=== PATIENT | male | born 1940 | race Caucasian/White ===

== ENCOUNTER 2016-08-10 08:00 | Outpatient (CLI) | payer MEDICARE | END 2016-08-10 23:59 | DX: I48.91 Unspecified atrial fibrillation (principal); Z79.01 Long term (current) use of anticoagulants ==

== ENCOUNTER 2016-09-07 13:03 | Outpatient (CLI) | payer MEDICARE | END 2016-09-07 13:04 | disposition home or self-care (01) | DX: I48.91 Unspecified atrial fibrillation (principal); Z79.01 Long term (current) use of anticoagulants ==

== ENCOUNTER 2016-10-04 11:39 | Outpatient (CLI) | payer MEDICARE | END 2016-10-04 11:40 | disposition home or self-care (01) | DX: I48.91 Unspecified atrial fibrillation (principal); Z79.01 Long term (current) use of anticoagulants ==

== ENCOUNTER 2016-11-03 15:12 | Outpatient (CLI) | payer MEDICARE | END 2016-11-03 15:13 | disposition home or self-care (01) | DX: Z79.01 Long term (current) use of anticoagulants (principal); I48.91 Unspecified atrial fibrillation ==

== ENCOUNTER 2016-11-10 09:21 | Outpatient (CLI) | payer MEDICARE | END 2016-11-10 09:22 | disposition home or self-care (01) | DX: Z79.01 Long term (current) use of anticoagulants (principal); I48.91 Unspecified atrial fibrillation ==

== ENCOUNTER 2016-11-27 13:01 | Outpatient (CLI) | payer MEDICARE | END 2016-11-27 13:02 | disposition home or self-care (01) | DX: I48.91 Unspecified atrial fibrillation (principal); Z79.01 Long term (current) use of anticoagulants ==

== ENCOUNTER 2016-12-12 12:57 | Outpatient (CLI) | payer MEDICARE | END 2016-12-12 12:58 | disposition home or self-care (01) | LOC: LAB.F 12:57 | PROVIDERS: ATTEND Family Medicine | DX: I48.91 Unspecified atrial fibrillation (principal); Z79.01 Long term (current) use of anticoagulants | CPT/HCPCS: 85610 ==

== ENCOUNTER 2016-12-26 10:44 | Outpatient (CLI) | payer MEDICARE | END 2016-12-26 10:45 | disposition home or self-care (01) | LOC: LAB.F 10:44 | PROVIDERS: ATTEND Family Medicine | DX: I48.91 Unspecified atrial fibrillation (principal); Z79.01 Long term (current) use of anticoagulants | CPT/HCPCS: 85610 ==

== ENCOUNTER 2017-01-23 12:54 | Outpatient (CLI) | payer MEDICARE | END 2017-01-23 12:55 | disposition home or self-care (01) | LOC: LAB.F 12:54 | PROVIDERS: ATTEND Family Medicine | DX: Z79.01 Long term (current) use of anticoagulants (principal) | CPT/HCPCS: 85610 ==

== ENCOUNTER 2017-02-27 13:08 | Outpatient (CLI) | payer MEDICARE | END 2017-02-27 13:09 | disposition home or self-care (01) | LOC: LAB.F 13:08 | PROVIDERS: ATTEND Family Medicine | DX: I48.91 Unspecified atrial fibrillation (principal); Z79.01 Long term (current) use of anticoagulants | CPT/HCPCS: 85610 ==

== ENCOUNTER 2017-03-27 12:32 | Outpatient (CLI) | payer MEDICARE | END 2017-03-27 12:33 | disposition home or self-care (01) | LOC: LAB.F 12:32 | PROVIDERS: ATTEND Family Medicine | DX: I48.91 Unspecified atrial fibrillation (principal); Z79.01 Long term (current) use of anticoagulants | CPT/HCPCS: 85610 ==

== ENCOUNTER 2017-04-24 12:43 | Outpatient (CLI) | payer MEDICARE | END 2017-04-24 12:44 | disposition home or self-care (01) | LOC: LAB.F 12:43 | PROVIDERS: ATTEND Family Medicine | DX: I48.91 Unspecified atrial fibrillation (principal); Z79.01 Long term (current) use of anticoagulants | CPT/HCPCS: 85610 ==

== ENCOUNTER 2017-05-03 12:38 | Outpatient (CLI) | payer MEDICARE | END 2017-05-03 12:39 | disposition home or self-care (01) | LOC: LAB.F 12:38 | PROVIDERS: ATTEND Family Medicine | DX: I48.91 Unspecified atrial fibrillation (principal); Z79.01 Long term (current) use of anticoagulants | CPT/HCPCS: 85610 ==

== ENCOUNTER 2017-06-08 09:15 | Outpatient (CLI) | payer MEDICARE | END 2017-06-08 09:16 | disposition home or self-care (01) | LOC: LAB.F 09:15 | PROVIDERS: ATTEND Family Medicine | DX: I48.91 Unspecified atrial fibrillation (principal); Z79.01 Long term (current) use of anticoagulants | CPT/HCPCS: 85610 ==

== ENCOUNTER 2017-06-18 09:25 | Outpatient (CLI) | payer MEDICARE | END 2017-06-18 09:26 | disposition home or self-care (01) | LOC: LAB.F 09:25 | PROVIDERS: ATTEND Family Medicine | DX: I48.91 Unspecified atrial fibrillation (principal); Z79.01 Long term (current) use of anticoagulants | CPT/HCPCS: 85610 ==

== ENCOUNTER 2017-06-26 10:21 | Outpatient (CLI) | payer MEDICARE | END 2017-06-26 10:22 | disposition home or self-care (01) | LOC: LAB.F 10:21 | PROVIDERS: ATTEND Internal Medicine Cardiovascular Disease | DX: I48.91 Unspecified atrial fibrillation (principal); Z79.01 Long term (current) use of anticoagulants | CPT/HCPCS: 85610 ==

== ENCOUNTER 2017-07-12 10:27 | Outpatient (CLI) | payer MEDICARE | END 2017-07-12 10:28 | disposition home or self-care (01) | LOC: LAB.F 10:27 | PROVIDERS: ATTEND Family Medicine | DX: I48.91 Unspecified atrial fibrillation (principal); Z79.01 Long term (current) use of anticoagulants | CPT/HCPCS: 85610 ==

== ENCOUNTER 2017-07-26 09:30 | Outpatient (CLI) | payer MEDICARE | END 2017-07-26 09:31 | disposition home or self-care (01) | LOC: LAB.F 09:30 | PROVIDERS: ATTEND Family Medicine | DX: I48.91 Unspecified atrial fibrillation (principal); Z79.01 Long term (current) use of anticoagulants | CPT/HCPCS: 85610 ==

== ENCOUNTER 2017-08-09 13:12 | Outpatient (CLI) | payer MEDICARE | END 2017-08-09 13:13 | disposition home or self-care (01) | LOC: LAB.F 13:12 | PROVIDERS: ATTEND Family Medicine | DX: I48.91 Unspecified atrial fibrillation (principal); Z79.01 Long term (current) use of anticoagulants | CPT/HCPCS: 85610 ==

== ENCOUNTER 2017-09-06 13:22 | Outpatient (CLI) | payer MEDICARE | END 2017-09-06 13:23 | disposition home or self-care (01) | LOC: LAB.F 13:22 | PROVIDERS: ATTEND Family Medicine | DX: I48.91 Unspecified atrial fibrillation (principal); Z79.01 Long term (current) use of anticoagulants | CPT/HCPCS: 85610 ==

== ENCOUNTER 2017-09-13 12:51 | Outpatient (CLI) | payer MEDICARE | END 2017-09-13 12:52 | disposition home or self-care (01) | LOC: LAB.F 12:51 | PROVIDERS: ATTEND Family Medicine | DX: I48.91 Unspecified atrial fibrillation (principal); Z79.01 Long term (current) use of anticoagulants | CPT/HCPCS: 85610 ==

== ENCOUNTER 2017-10-11 12:45 | Outpatient (CLI) | payer MEDICARE | END 2017-10-11 12:46 | disposition home or self-care (01) | LOC: LAB.F 12:45 | PROVIDERS: ATTEND Family Medicine | DX: I48.91 Unspecified atrial fibrillation (principal); Z79.01 Long term (current) use of anticoagulants | CPT/HCPCS: 85610 ==

== ENCOUNTER 2017-11-08 11:28 | Outpatient (CLI) | payer MEDICARE | END 2017-11-08 11:29 | disposition home or self-care (01) | LOC: LAB.F 11:28 | PROVIDERS: ATTEND Family Medicine | DX: I48.91 Unspecified atrial fibrillation (principal); Z79.01 Long term (current) use of anticoagulants | CPT/HCPCS: 85610 ==

== ENCOUNTER 2017-12-05 13:44 | Outpatient (CLI) | payer MEDICARE | END 2017-12-05 13:45 | disposition home or self-care (01) | LOC: LAB.F 13:44 | PROVIDERS: ATTEND Family Medicine | DX: I48.91 Unspecified atrial fibrillation (principal); Z79.01 Long term (current) use of anticoagulants | CPT/HCPCS: 85610 ==

== ENCOUNTER 2017-12-12 11:22 | Outpatient (CLI) | payer MEDICARE | END 2017-12-12 11:23 | disposition home or self-care (01) | LOC: LAB.F 11:22 | PROVIDERS: ATTEND Family Medicine | DX: I48.91 Unspecified atrial fibrillation (principal); Z79.01 Long term (current) use of anticoagulants | CPT/HCPCS: 85610 ==

== ENCOUNTER 2017-12-20 11:15 | Outpatient (CLI) | payer MEDICARE | END 2017-12-20 11:16 | disposition home or self-care (01) | LOC: LAB.F 11:15 | PROVIDERS: ATTEND Family Medicine | DX: I48.91 Unspecified atrial fibrillation (principal); Z79.01 Long term (current) use of anticoagulants | CPT/HCPCS: 85610 ==

== ENCOUNTER 2017-12-28 09:39 | Outpatient (CLI) | payer MEDICARE | END 2017-12-28 09:40 | disposition home or self-care (01) | LOC: LAB.F 09:39 | PROVIDERS: ATTEND Family Medicine | DX: I48.91 Unspecified atrial fibrillation (principal); Z79.01 Long term (current) use of anticoagulants | CPT/HCPCS: 85610 ==

== ENCOUNTER 2018-01-04 09:19 | Outpatient (CLI) | payer MEDICARE | END 2018-01-04 09:20 | disposition home or self-care (01) | LOC: LAB.F 09:19 | PROVIDERS: ATTEND Family Medicine | DX: I48.91 Unspecified atrial fibrillation (principal); Z79.01 Long term (current) use of anticoagulants | CPT/HCPCS: 85610 ==

== ENCOUNTER 2018-02-01 09:48 | Outpatient (CLI) | payer MEDICARE | END 2018-02-01 09:49 | disposition home or self-care (01) | LOC: LAB.F 09:48 | PROVIDERS: ATTEND Family Medicine | DX: Z79.01 Long term (current) use of anticoagulants (principal); I48.91 Unspecified atrial fibrillation | CPT/HCPCS: 85610 ==

== ENCOUNTER 2018-03-01 09:57 | Outpatient (CLI) | payer MEDICARE | END 2018-03-01 09:58 | disposition home or self-care (01) | LOC: LAB.F 09:57 | PROVIDERS: ATTEND Internal Medicine Cardiovascular Disease | DX: I48.91 Unspecified atrial fibrillation (principal); Z79.01 Long term (current) use of anticoagulants | CPT/HCPCS: 85610 ==

== ENCOUNTER 2018-03-28 09:45 | Outpatient (CLI) | payer MEDICARE | END 2018-03-28 09:46 | disposition home or self-care (01) | LOC: LAB.F 09:45 | PROVIDERS: ATTEND Family Medicine | DX: I48.91 Unspecified atrial fibrillation (principal); Z79.01 Long term (current) use of anticoagulants | CPT/HCPCS: 85610 ==

== ENCOUNTER 2018-04-25 10:32 | Outpatient (CLI) | payer MEDICARE | END 2018-04-25 10:33 | disposition home or self-care (01) | LOC: LAB.F 10:32 | PROVIDERS: ATTEND Family Medicine | DX: Z79.01 Long term (current) use of anticoagulants (principal); I48.91 Unspecified atrial fibrillation | CPT/HCPCS: 85610 ==

== ENCOUNTER 2018-04-30 10:27 | Outpatient (CLI) | payer MEDICARE | END 2018-04-30 10:28 | disposition home or self-care (01) | LOC: RT 10:27 | PROVIDERS: ATTEND Internal Medicine Gastroenterology | DX: R19.5 Other fecal abnormalities (principal) | CPT/HCPCS: 93005 ==

== ENCOUNTER 2018-05-03 09:59 | Outpatient (CLI) | payer MEDICARE ==
[2018-05-03 17:41] LABS: BASOPHILS % (AUTO) 0.7 %; EOSINOPHILS # (AUTO) 0.3 10^3/uL (0.0-0.7); EOSINOPHILS % (AUTO) 6.8 %; HGB - HEMOGLOBIN 13.9 g/dL (14.0-18.0); LYMPHOCYTES # (AUTO) 0.8 10^3/uL (1.5-3.5); LYMPHOCYTES % (AUTO) 20.7 %; MEAN CORPUSCULAR HEMOGLOBIN 33.3 pg (27.0-31.0); MEAN CORPUSCULAR HGB CONC 33.8 g/dL (32.0-36.0); MEAN CORPUSCULAR VOLUME 98.4 fL (80.0-94.0); MEAN PLATELET VOLUME 9.6 fL (7.4-11.4); MONOCYTES # (AUTO) 0.4 10^3/uL (0.0-1.0); MONOCYTES % (AUTO) 8.9 %; NEUTROPHILS # (AUTO) 2.5 10^3/uL (1.5-6.6); NEUTROPHILS % (AUTO) 62.9 %; PLT - PLATELET COUNT 117 10^3/uL (130-450); RED BLOOD COUNT 4.17 10^6/uL (4.70-6.10); WHITE BLOOD COUNT 3.9 x10^3/uL (4.8-10.8)
[2018-05-03 18:02] LABS: ALBUMIN 4.2 g/dL (3.2-5.5); ALBUMIN/GLOBULIN RATIO 1.6 (1.0-2.2); BILIRUBIN,TOTAL 1.1 mg/dL (0.2-1.0); CREATININE 0.9 mg/dL (0.6-1.2); TOTAL PROTEIN 6.8 g/dL (6.7-8.2)
== END 2018-05-03 10:00 | disposition home or self-care (01) ==
LOC: LAB.F 09:59
PROVIDERS: ATTEND Family Medicine
DX: R19.5 Other fecal abnormalities (principal)
CPT/HCPCS: 36415; 80053; 85025

== ENCOUNTER 2018-05-16 09:38 | Day surgery (SDC) | payer MEDICARE ==
[2018-05-16] MEDS ORDERED: LACTATED RINGERS 1,000 ML IV ONE (10:24)
[2018-05-16 10:45] LABS: INR 3.8 (0.8-1.2)
[2018-05-16] MEDS ORDERED: LIDO GARGLE 30 ML BOTTLE ONE (10:52)
[2018-05-16] MEDS ORDERED: MIDAZOLAM 2 MG/2 ML VIAL IVP ONE (10:58)
[2018-05-16] MEDS ORDERED: fentaNYL 250 MCG/5 ML VIAL IVP ONE (10:58)
[2018-05-16 12:16] VITALS: BP 99/61
== END 2018-05-16 09:39 | disposition home or self-care (01) ==
LOC: SDS 09:38
PROVIDERS: ATTEND Internal Medicine Gastroenterology
PROC: 0DJD8ZZ Inspection of Lower Intestinal Tract, Via Natural or Artificial Opening Endoscopic (ICD-10-PCS; principal; 2018-05-16 11:00)
PROC: 0DJ08ZZ Inspection of Upper Intestinal Tract, Via Natural or Artificial Opening Endoscopic (ICD-10-PCS; 2018-05-16 11:00)
DX: R19.5 Other fecal abnormalities (principal); K21.9 Gastro-esophageal reflux disease without esophagitis; K44.9 Diaphragmatic hernia without obstruction or gangrene; E11.9 Type 2 diabetes mellitus without complications; I48.91 Unspecified atrial fibrillation; Z72.0 Tobacco use; Z79.01 Long term (current) use of anticoagulants; Z79.899 Other long term (current) drug therapy; Z79.84 Long term (current) use of oral hypoglycemic drugs
CPT/HCPCS: 36415; 43235; 45378; 85610; A9270; J7120

== ENCOUNTER 2018-05-24 14:07 | Outpatient (CLI) | payer MEDICARE ==
[2018-05-24 18:00] LABS: INR 3.3 (0.8-1.2); PT - PROTHROMBIN TIME 36.6 secs (9.9-12.6)
== END 2018-05-24 14:08 | disposition home or self-care (01) ==
LOC: LAB.F 14:07
PROVIDERS: ATTEND Family Medicine
DX: Z79.01 Long term (current) use of anticoagulants (principal)
CPT/HCPCS: 36415; 85610

== ENCOUNTER 2018-05-27 13:45 | Outpatient (CLI) | payer MEDICARE | END 2018-05-27 13:46 | disposition home or self-care (01) | LOC: DI 13:45 | PROVIDERS: ATTEND Internal Medicine Cardiovascular Disease | DX: Z09 Encounter for follow-up examination after completed treatment for conditions other than malignant neoplasm (principal); Z98.890 Other specified postprocedural states; I77.810 Thoracic aortic ectasia | CPT/HCPCS: 93306 ==

== ENCOUNTER 2018-06-03 11:20 | Outpatient (CLI) | payer MEDICARE | END 2018-06-03 11:21 | disposition home or self-care (01) | LOC: LAB.F 11:20 | PROVIDERS: ATTEND Family Medicine | DX: I48.91 Unspecified atrial fibrillation (principal); Z79.01 Long term (current) use of anticoagulants | CPT/HCPCS: 85610 ==

== ENCOUNTER 2018-06-17 10:33 | Outpatient (CLI) | payer MEDICARE | END 2018-06-17 10:34 | disposition home or self-care (01) | LOC: LAB.F 10:33 | PROVIDERS: ATTEND Family Medicine | DX: I48.91 Unspecified atrial fibrillation (principal); Z79.01 Long term (current) use of anticoagulants | CPT/HCPCS: 85610 ==

== ENCOUNTER 2018-07-17 10:13 | Outpatient (CLI) | payer MEDICARE | END 2018-07-17 10:14 | disposition home or self-care (01) | LOC: LAB.F 10:13 | PROVIDERS: ATTEND Family Medicine | DX: Z79.01 Long term (current) use of anticoagulants (principal); I48.91 Unspecified atrial fibrillation | CPT/HCPCS: 85610 ==

== ENCOUNTER 2018-08-14 13:51 | Outpatient (CLI) | payer MEDICARE | END 2018-08-14 13:52 | disposition home or self-care (01) | LOC: LAB.F 13:51 | PROVIDERS: ATTEND Family Medicine | DX: I48.91 Unspecified atrial fibrillation (principal); Z79.01 Long term (current) use of anticoagulants | CPT/HCPCS: 85610 ==

== ENCOUNTER 2018-09-10 13:20 | Outpatient (CLI) | payer MEDICARE | END 2018-09-10 13:21 | disposition home or self-care (01) | LOC: LAB.F 13:20 | PROVIDERS: ATTEND Family Medicine | DX: I48.91 Unspecified atrial fibrillation (principal); Z79.01 Long term (current) use of anticoagulants | CPT/HCPCS: 85610 ==

== ENCOUNTER 2018-09-19 13:20 | Outpatient (CLI) | payer MEDICARE ==
[2018-09-19 13:50] LABS: BASOPHILS % (AUTO) 0.8 %; EOSINOPHILS # (AUTO) 0.2 10^3/uL (0.0-0.7); EOSINOPHILS % (AUTO) 4.7 %; HGB - HEMOGLOBIN 13.6 g/dL (14.0-18.0); LYMPHOCYTES # (AUTO) 0.9 10^3/uL (1.5-3.5); LYMPHOCYTES % (AUTO) 17.7 %; MEAN CORPUSCULAR HEMOGLOBIN 33.4 pg (27.0-31.0); MEAN CORPUSCULAR HGB CONC 34.7 g/dL (32.0-36.0); MEAN CORPUSCULAR VOLUME 96.4 fL (80.0-94.0); MEAN PLATELET VOLUME 8.7 fL (7.4-11.4); MONOCYTES # (AUTO) 0.5 10^3/uL (0.0-1.0); NEUTROPHILS # (AUTO) 3.2 10^3/uL (1.5-6.6); NEUTROPHILS % (AUTO) 66.8 %; PLT - PLATELET COUNT 135 10^3/uL (130-450); RED BLOOD COUNT 4.08 10^6/uL (4.70-6.10); RED CELL DISTRIBUTION WIDTH 13.1 % (12.0-15.0); WHITE BLOOD COUNT 4.8 x10^3/uL (4.8-10.8)
[2018-09-19 13:56] LABS: ALBUMIN 4.5 g/dL (3.2-5.5); ALBUMIN/GLOBULIN RATIO 1.8 (1.0-2.2); BILIRUBIN,TOTAL 0.7 mg/dL (0.2-1.0); CALCIUM 9.1 mg/dL (8.5-10.3); CREATININE 0.9 mg/dL (0.6-1.2)
== END 2018-09-19 13:21 | disposition home or self-care (01) ==
LOC: LAB 13:20
PROVIDERS: ATTEND Internal Medicine Cardiovascular Disease
DX: Z51.81 Encounter for therapeutic drug level monitoring (principal); Z79.899 Other long term (current) drug therapy
CPT/HCPCS: 36415; 80053; 85025

== ENCOUNTER 2018-09-23 13:10 | Outpatient (CLI) | payer MEDICARE | END 2018-09-23 13:11 | disposition home or self-care (01) | LOC: LAB.F 13:10 | PROVIDERS: ATTEND Family Medicine | DX: Z79.01 Long term (current) use of anticoagulants (principal); I48.91 Unspecified atrial fibrillation | CPT/HCPCS: 85610 ==

== ENCOUNTER 2018-10-24 10:53 | Outpatient (CLI) | payer MEDICARE ==
[2018-10-24 11:34] LABS: HGB - HEMOGLOBIN 13.7 g/dL (14.0-18.0); MEAN CORPUSCULAR HEMOGLOBIN 33.2 pg (27.0-31.0); MEAN CORPUSCULAR HGB CONC 33.7 g/dL (32.0-36.0); MEAN CORPUSCULAR VOLUME 98.5 fL (80.0-94.0); MEAN PLATELET VOLUME 8.8 fL (7.4-11.4); RED BLOOD COUNT 4.14 10^6/uL (4.70-6.10); RED CELL DISTRIBUTION WIDTH 12.9 % (12.0-15.0); WHITE BLOOD COUNT 4.8 x10^3/uL (4.8-10.8)
== END 2018-10-24 10:54 | disposition home or self-care (01) ==
LOC: LAB 10:53
PROVIDERS: ATTEND Internal Medicine Cardiovascular Disease
DX: I48.2 Chronic atrial fibrillation (principal)
CPT/HCPCS: 36415; 85027

== ENCOUNTER 2021-04-26 08:59 | Outpatient (CLI) | payer MEDICARE | END 2021-04-26 09:00 | disposition home or self-care (01) | LOC: DI 08:59 | PROVIDERS: ATTEND Internal Medicine Cardiovascular Disease | DX: Z98.890 Other specified postprocedural states (principal) | CPT/HCPCS: 93306 ==

== ENCOUNTER 2021-08-25 12:19 | Outpatient (CLI) | payer MEDICARE | END 2021-08-25 12:20 | disposition home or self-care (01) | LOC: RT 12:19 | PROVIDERS: ATTEND Internal Medicine Cardiovascular Disease | DX: Z01.810 Encounter for preprocedural cardiovascular examination (principal); I48.91 Unspecified atrial fibrillation | CPT/HCPCS: 93005 ==

== ENCOUNTER 2021-09-07 12:43 | Outpatient (CLI) | payer MEDICARE ==
[2021-09-07] MEDS ORDERED: AMINOPHYLLINE 500 MG/20 ML VIAL ONE (14:14)
[2021-09-07] MEDS ORDERED: REGADENOSON 0.4 MG/5 ML SYRINGE IVP ONE ×2 (14:14→16:40)
--- NOTE | 2021-09-07 16:50 | CARDIAC PROCEDURE NOTE ---
Stress Test Report Service Date: 09/07/21 Ordering Provider: Dr Deion Christopher Indication for Test: Afib, Pre-op eval Significant Medical History: Patient had CABG in 2012. Cardiac Risk Factors: Male gender, advanced age, Hx of CABG, DM, Family History of heart disease Type of Stress Test: Pharmacologic Stress Test with MPI Pharmacologic Agent: Lexiscan Procedure: After signing informed consent, the patient underwent a Lexiscan pharmaceutical stress test with nuclear myocardial perfusion imaging. Resting heart rate: 80-122 (in atrial flutter). Peak heart rate: 122 Resting blood pressure: 124/91. Peak blood pressure: 125/85 Lexiscan was infused per protocol and the patient performed isometric exercise with hands and feet. The patient developed no chest pain, shortness of breath or nausea with the Lexiscan infusion. Resting EKG: Atrial flutter with variable block, heart rate 80-120, vertical axis, right IVCD, poor R wave progression, diffuse scooping ST segment depressions. Peak EKG: no new ST segment or T wave changes. Nuclear images were reported separately. Summary: 1) Abnormal resting EKG with rapid heart rate and diffuse ST segment abnormality. 2) No new EKG changes seen with pharmaceutical stress. 3) Nuclear images were reported separately and showed: Normal myocardial perfusion imaging, suspect attenuation artifact in the inferior apex, no definitive perfusion defects to suggest myocardial ischemia or infarct, normal LVEF. Conclusion: 1) Aflutter with RVR seen on EKG. 2) Imaging showed no ischemia or infarction 3) This patient's Cardiac Risk: Low-Moderate
--- NOTE | 2021-09-07 17:11 | Nuclear Medicine Report ---
PROCEDURE: Rest and pharmacological stress myocardial perfusion SPECT with gated imaging and ejection fraction INDICATIONS: AFIB/ LEXISCAN RADIOPHARMACEUTICAL: 12.7 mCi Tc-99m Myoview IV at rest and 35.8 mCi Tc-99m Myoview IV at peak exerc ise. Wly-yya-hrhwflzp was performed. TECHNIQUE: Radiopharmaceutical was injected at peak stress test, and also at rest. SPECT images wer e obtained. SPECT myocardial perfusion images were displayed in short axis, horizontal long axis, an d vertical long axis views. Gated images were reviewed using AutoQUANT software. COMPARISON: None available. FINDINGS: Raw data: There is good myocardial labeling by radiotracer. No significant motion artifacts. Lung- to-heart ratio is 0.34 (normal is less than 0.46 for tetrafosmin tracer). Left ventricle function: Gated images demonstrate normal left ventricle wall thickening. No segment al wall motion abnormality. No transient ischemic dilation; TID is 0.98 (normal less than 1.30). Th e left ventricle resting end-diastolic volume is normal. Left ventricle stress ejection fraction is 62%; normal values are above 45%. Myocardial perfusion: There is a moderate size, iyfd-wz-ptszziqbwq severe, fixed defect in the infer ior apex, which is more pronounced on resting images than stress images, most likely caused by attenu ation artifact. IMPRESSION: 1. Probably normal myocardial perfusion images. Suspect attenuation artifact in the inferior apex. No definitive perfusion defects to suggest myocardial ischemia or infarct. 2. Normal left ventricular volume. There is septal rocking. Left ventricle ejection fraction is withi n normal limits. 3. Please correlate with stress EKG report. PQRS ATTESTATIONS: Measure 322 - Is this imaging test primarily performed on a low-risk surgery patient for preoperative evaluation within 30 days preceding their low-risk non-cardiac surgery? Low-risk surgery is defined as cardiac or myocardial infarction less than 1%, including (but not limited to) endoscopic pr ocedures, superficial procedures, cataract surgery, and excisional breast surgery: Answer: No Measure 323 - Is this imaging test performed primarily for the monitoring of an asymptomatic patient who had percutaneous coronary intervention on the visit date or within 2 years of the visit date? An swer: No Measure 324 - Is this imaging test performed primarily for the initial detection and risk assessment on an asymptomatic, low coronary heart disease patient? Low CHD risk definition = clinicians should consider the maximum number of available patient factors used to estimate risk based on [place] (A TP III criteria), typically age, gender, diabetes, smoking status, and use of blood pressure medicati on, and integrate age appropriate estimates for missing elements, such as LDL or standard blood press ure. Answer: No Reviewed by: Chester Saldaña MD on 09/07/2021 5:10 PM PST Approved by: Chester Saldaña MD on 09/07/2021 5:10 PM PST Station ID: [id number]
== END 2021-09-07 12:44 | disposition home or self-care (01) ==
LOC: DI 12:43
PROVIDERS: ATTEND Internal Medicine Cardiovascular Disease
DX: Z01.818 Encounter for other preprocedural examination (principal); I48.91 Unspecified atrial fibrillation; R94.39 Abnormal result of other cardiovascular function study; I48.92 Unspecified atrial flutter; Z95.1 Presence of aortocoronary bypass graft; E11.9 Type 2 diabetes mellitus without complications; Z82.49 Family history of ischemic heart disease and other diseases of the circulatory system
CPT/HCPCS: 78452; 93017; A9500; J2785; 93016; 93018

== ENCOUNTER 2021-11-03 13:12 | Outpatient (CLI) | payer MEDICARE ==
--- NOTE | 2021-11-03 16:44 | Ultrasound Report ---
PROCEDURE: Carotid Doppler Complete INDICATIONS: CAROTID BRUIT TECHNIQUE: Color and pulse Doppler interrogation was performed of both carotid systems, with image documentation and velocity measurements. COMPARISON: None. FINDINGS: Right side: Brachial blood pressure: 117/65 mm Hg. Common carotid artery peak systolic velocity: 73 cm/sec. Internal carotid artery peak systolic velocity: 60 cm/sec. Internal carotid artery end diastolic velocity: 27 cm/sec. External carotid artery peak systolic velocity: 84 cm/sec. ICA/CCA peak systolic ratio: 0.86 . Yates scale imaging description: Mild intimal thickening. Percent internal carotid artery stenosis: Less than 50% . Vertebral artery: Flow direction is antegrade. Left side: Brachial blood pressure: 112/58 mm Hg. Common carotid artery peak systolic velocity: 66 cm/sec. Internal carotid artery peak systolic velocity: 82 cm/sec. Internal carotid artery end diastolic velocity: 38 cm/sec. External carotid artery peak systolic velocity: 83 cm/sec. ICA/CCA peak systolic ratio: 1.2 . Yates scale imaging description: Mild intimal thickening Percent internal carotid artery stenosis: Less than 50% . Vertebral artery: Flow direction is antegrade. IMPRESSION: Less than 50% stenosis of the origins of the right and left internal carotid arteries. The estimate of stenosis included in the report of the imaging study was calculated using the NASCET method Reviewed by: Micki Cornell MD, PhD on 11/03/2021 4:43 PM PDT Approved by: Micki Cornell MD, PhD on 11/03/2021 4:43 PM PDT Station ID: [id number]
== END 2021-11-03 13:13 | disposition home or self-care (01) ==
LOC: DI 13:12
PROVIDERS: ATTEND Nurse Practitioner Family
DX: R09.89 Other specified symptoms and signs involving the circulatory and respiratory systems (principal)
CPT/HCPCS: 93880

== ENCOUNTER 2022-01-26 11:09 | Outpatient (CLI) | payer MEDICARE ==
[2022-01-26 11:20] LABS: BASOPHILS % (AUTO) 0.3 %; EOSINOPHILS # (AUTO) 0.2 10^3/uL (0.0-0.7); HCT - HEMATOCRIT 41.1 % (42.0-52.0); HGB - HEMOGLOBIN 13.8 g/dL (14.0-18.0); LYMPHOCYTES % (AUTO) 16.1 %; MEAN CORPUSCULAR HEMOGLOBIN 33.5 pg (27.0-31.0); MEAN CORPUSCULAR HGB CONC 33.6 g/dL (32.0-36.0); MEAN CORPUSCULAR VOLUME 99.8 fL (80.0-94.0); MEAN PLATELET VOLUME 10.2 fL (7.4-11.4); MONOCYTES # (AUTO) 0.6 10^3/uL (0.0-1.0); MONOCYTES % (AUTO) 10.2 %; NEUTROPHILS # (AUTO) 4.2 10^3/uL (1.5-6.6); NEUTROPHILS % (AUTO) 70.1 %; PLT - PLATELET COUNT 153 10^3/uL (130-450); RED BLOOD COUNT 4.12 10^6/uL (4.70-6.10); RED CELL DISTRIBUTION WIDTH 12.5 % (12.0-15.0)
[2022-01-26 11:41] LABS: BUN - BLOOD UREA NITROGEN 24 mg/dL (6-20); CALCIUM 9.6 mg/dL (8.5-10.3); CARBON DIOXIDE - CO2 26 mmol/L (21-32); CHLORIDE 105 mmol/L (101-111); CREATININE 0.8 mg/dL (0.6-1.2); DIGOXIN 0.8 ng/mL; GFR - MDRD 93 (>89); GLUCOSE 100 mg/dL (70-100); LDL CHOLESTEROL,DIRECT 67 mg/dL; POTASSIUM 4.1 mmol/L (3.5-5.0); SODIUM 141 mmol/L (135-145)
== END 2022-01-26 11:10 | disposition home or self-care (01) ==
LOC: LAB 11:09
PROVIDERS: ATTEND Internal Medicine Cardiovascular Disease
DX: I48.91 Unspecified atrial fibrillation (principal)
CPT/HCPCS: 36415; 80048; 80162; 83721; 85025

== ENCOUNTER 2023-01-03 12:28 | Outpatient (CLI) | payer MEDICARE | END 2023-01-03 12:29 | disposition home or self-care (01) | LOC: DI 12:28 | PROVIDERS: ATTEND Internal Medicine Cardiovascular Disease | DX: I34.0 Nonrheumatic mitral (valve) insufficiency (principal); I51.7 Cardiomegaly; I77.819 Aortic ectasia, unspecified site | CPT/HCPCS: 93306 ==

== ENCOUNTER 2023-08-13 12:39 | Outpatient (CLI) | payer MEDICARE ==
[2023-08-13 15:23] LABS: BASOPHILS % (AUTO) 0.6 %; EOSINOPHILS # (AUTO) 0.1 10^3/uL (0.0-0.7); EOSINOPHILS % (AUTO) 1.1 %; HCT - HEMATOCRIT 42.4 % (42.0-52.0); HGB - HEMOGLOBIN 13.7 g/dL (14.0-18.0); LYMPHOCYTES # (AUTO) 0.9 10^3/uL (1.5-3.5); LYMPHOCYTES % (AUTO) 16.2 %; MEAN CORPUSCULAR HEMOGLOBIN 32.9 pg (27.0-31.0); MEAN CORPUSCULAR HGB CONC 32.3 g/dL (32.0-36.0); MEAN CORPUSCULAR VOLUME 101.9 fL (80.0-94.0); MEAN PLATELET VOLUME 10.6 fL (7.4-11.4); MONOCYTES # (AUTO) 0.6 10^3/uL (0.0-1.0); MONOCYTES % (AUTO) 10.6 %; NEUTROPHILS # (AUTO) 3.8 10^3/uL (1.5-6.6); NEUTROPHILS % (AUTO) 71.1 %; PLT - PLATELET COUNT 159 10^3/uL (130-450); RED BLOOD COUNT 4.16 10^6/uL (4.70-6.10); WHITE BLOOD COUNT 5.3 x10^3/uL (4.8-10.8)
[2023-08-13 16:34] LABS: ALBUMIN 4.6 g/dL (3.2-5.5); ALBUMIN/GLOBULIN RATIO 1.5 (1.0-2.2); CALCIUM 9.9 mg/dL (8.5-10.3); CREATININE 0.9 mg/dL (0.6-1.3); POTASSIUM 4.5 mmol/L (3.5-4.5); TOTAL PROTEIN 7.6 g/dL (6.4-8.9)
== END 2023-08-13 12:40 | disposition home or self-care (01) ==
LOC: LAB.S 12:39
PROVIDERS: ATTEND Registered Nurse
DX: R35.0 Frequency of micturition (principal); R31.9 Hematuria, unspecified; Z79.01 Long term (current) use of anticoagulants
CPT/HCPCS: 36415; 80053; 82550; 85025; 87086

== ENCOUNTER 2023-08-30 08:00 | Outpatient (CLI) | payer MEDICARE | END 2023-08-30 23:59 | disposition home or self-care (01) | LOC: LAB.R 08:00 | PROVIDERS: ATTEND Urology | DX: R31.9 Hematuria, unspecified (principal) | CPT/HCPCS: 87086 ==

== ENCOUNTER 2023-09-12 12:47 | Outpatient (CLI) | payer MEDICARE ==
[2023-09-12] MEDS ORDERED: iohexoL-300 100 ML VIAL ONE (12:57)
[2023-09-12] MEDS: iohexoL-300 100 ML VIAL IVP ONE (15:19)
--- NOTE | 2023-09-12 15:38 | CT Report ---
PROCEDURE: IVP INDICATIONS: HEMATURIA CONTRAST: Omni 300 140ml TECHNIQUE: A [address] of the abdomen and pelvis was performed. Non-contrast and contrast images were recorded and evaluated at appropriate window settings. Images were recorded and evaluated at appropriate windo w settings. Reformats: coronal and sagittal. For radiation dose reduction, the following was used: au tomated exposure control, adjustment of convex left scoliosis. 3 interval casting with improved align ment at the tibia and fibula fractures. MA and/or kV according to patient size. COMPARISON: CT abdomen pelvis 03/24/2016 FINDINGS: Image quality: Diagnostic. Urinary system: Both kidneys are normal in size. No left hydronephrosis. There are 3 punctate calcif ications within the mid and inferior inferior left renal poles. There is a 2 mm distal right ureteral calcification. Very minimal renal collecting system prominence. Bilateral simple cysts. The opacifie d renal calyces and ureters appear normal, without filling defect. Bladder wall thickness is normal, accounting for underdistention. No calcified bladder stones. No filling defect within the opacified bladder. OTHER Lower chest: Unremarkable. Liver: No solid mass. Gallbladder and biliary tree: Renal stone is present. Spleen: No splenomegaly. Pancreas: No pancreatic ductal dilation. Adrenals: No adrenal nodule. Stomach, bowel and peritoneum: No bowel distension. No pathologic free fluid. Hiatal hernia. Abdominal Lymph nodes: No central or retroperitoneal adenopathy. Vessels: Unremarkable. Reproductive organs: Unremarkable. Pelvic Lymph nodes: Unremarkable. Bones: No aggressive osseous abnormality. Multilevel degenerative changes are present. Other: Fat-containing ventral hernia. Bilateral fat-containing inguinal hernias. IMPRESSION: 2 mm distal right ureteral calculus with very minimal renal collecting system prominence. Reviewed by: Lamar Figueroa MD on 09/12/2023 3:36 PM [facility] Approved by: Lamar Figueroa MD on 09/12/2023 3:36 PM PST Station ID: [id number]
== END 2023-09-12 12:48 | disposition home or self-care (01) ==
LOC: DI 12:47
PROVIDERS: ATTEND Urology
DX: N20.1 Calculus of ureter (principal); R31.9 Hematuria, unspecified
CPT/HCPCS: 74178; Q9967

== ENCOUNTER 2023-11-04 12:45 | Outpatient (CLI) | payer MEDICARE ==
--- NOTE | 2023-11-04 17:14 | Ultrasound Report ---
PROCEDURE: Renal (Retroperitoneal) INDICATIONS: HEMATURIA TECHNIQUE: Real-time scanning was performed of the retroperitoneal organs, with image documentation. COMPARISON: CT IVP 09/12/2023 FINDINGS: Kidneys: Kidneys are normal in size. Right kidney measures 11 point cm long; left kidney measures 1 2.7 cm long. Right renal cortical thickness is 0.8 cm; left renal cortical thickness is 0.9 cm. Both the right and left kidney demonstrate mild dilation of the renal pelvis. Simple cysts are identified within the kidneys bilaterally. Calcifications identified on CT are normal identified on current exa m. Bladder: Pre-void bladder volume is 184 mL. Post-void residual is 21 mL. Pre-void images demonstra te no intraluminal masses or stones. On pre-void images, bilateral ureteral jets are noted with colo r Doppler interrogation. (Of note, ureteral jets may not be detectable in up to 25% of cases due to insufficient differences in specific gravity between ureteral and bladder urine). Miscellaneous: No free abdominal fluid. IMPRESSION: Minimal prominence of the renal pelvis within both the left and right kidney. Simple bilateral renal cysts. Previous punctate calcifications identified on CT are not clearly identified on current exam. Reviewed by: Lamar Figueroa MD on 11/04/2023 5:12 PM PDT Approved by: Lamar Figueroa MD on 11/04/2023 5:12 PM PDT Station ID: [id number]
== END 2023-11-04 12:46 | disposition home or self-care (01) ==
LOC: DI 12:45
PROVIDERS: ATTEND Urology
DX: R31.9 Hematuria, unspecified (principal); N20.1 Calculus of ureter; N28.1 Cyst of kidney, acquired

== ENCOUNTER 2024-03-29 11:52 | Emergency (ER) | payer MEDICARE ==
[2024-03-29 12:11] VITALS: BP 110/77; O2SAT 98
--- NOTE | 2024-03-29 12:22 | ED Physician Documentation ---
History of Present Illness - Stated complaint Stated Complaint: POST SURG TONGUE BLEED - Chief complaint Chief Complaint: General - History obtained from History obtained from: Patient (4 days ago he had a left-sided tongue biopsy done by Dr. Atilio Velazquez for concerning lesion. No pathology yet. Starting yesterday he has had bleeding from the biopsy site.) PD PAST MEDICAL HISTORY - Past Medical History Cardiovascular: Hypertension, Valve disorder Respiratory: None Endocrine/Autoimmune: Type 2 diabetes GI: None, GERD : Benign prostate hypertrophy, Nocturia, Kidney stones HEENT: None Psych: None Musculoskeletal: Osteoarthritis, Rheumatoid arthritis Derm: None - Past Surgical History Past Surgical History: Yes - Present Medications Home Medications: Ambulatory Orders Medication Instructions Recorded Confirmed Atorvastatin [Lipitor] 10 mg PO DAILY 05/16/18 05/16/18 Lisinopril [Zestril] 5 mg PO DAILY 05/16/18 05/16/18 Metformin HCl 500 mg PO DAILY 05/16/18 05/16/18 Famotidine [Pepcid] 20 mg PO BID PRN 08/20/23 Metoprolol Succinate [Toprol Xl] 50 mg PO DAILY 08/20/23 Rivaroxaban [Xarelto] 20 mg PO QDDINNER 08/20/23 - Allergies Allergies/Adverse Reactions: Allergies Allergy/AdvReac Type Severity Reaction Status Date / Time penicillin V Allergy Intermediate Nausea Verified 03/29/24 12:08 - Social History Does the pt smoke?: No Smoking Status: Never smoker Does the pt drink ETOH?: No Does the pt have substance abuse?: No - Immunizations Immunizations are current?: Yes - POLST Patient has POLST: No PD ED PE NORMAL - Vitals Vital signs reviewed: Yes - General General: Alert and oriented X 3, No acute distress - HEENT HEENT: Other (There is a left-sided tongue defect with mild active oozing.) - Neuro Neuro: Alert and oriented X 3 Results - Vitals Vitals: Vital Signs - 24 hr 03/29/24 12:08 Temperature 36.6 C Heart Rate 96 Respiratory 15 Rate Blood Pressure 110/77 O2 Saturation 98 Oxygen O2 Source Room air PD Medical Decision Making - ED course ED course: 83-year-old gentleman who had a tongue biopsy and now has bleeding at the biopsy site. Initially I injected some local lidocaine with epinephrine and subsequently cauterized with silver nitrate. This slowed the bleeding significantly but there was still a slight ooze and I consulted Dr. Velazquez who recommended topical tranexamic acid. Some was put on a gauze and let sit on the site for a while and the bleeding stopped. Departure - Departure Disposition: Home, Self Care Clinical Impression: Hemorrhage of tongue Condition: Good Record reviewed to determine appropriate education?: Yes Instructions: First Aid Bleeding Comments: If bleeding starts up again you can put a small amount of the tranexamic acid on a gauze and let it sit there for 10 to 20 minutes. If that does not resolve the bleeding return for reevaluation. Inflammatory follow-up with the surgeon on Sunday for reevaluation regardless.. Forms: PCP List
[2024-03-29] MEDS: LIDOCAINE 1%-EPI 1:100000 20 ML MDV SUBQ STA (12:27)
[2024-03-29] MEDS: SILVER NITRATE APPLICATOR TOP STA (12:27)
[2024-03-29] MEDS: TRANEXAMIC ACID 1,000 MG/10 ML VIAL NAS STA (12:37)
== END 2024-03-29 13:11 | disposition home or self-care (01) ==
LOC: ED 11:52
DX: K14.8 Other diseases of tongue (principal); Z98.890 Other specified postprocedural states
CPT/HCPCS: 99283